=== PATIENT | male | born 1980 | race Caucasian/White ===

== ENCOUNTER 2017-11-02 10:08 | Emergency (ER) | payer MEDICAID ==
[2017-11-02] MEDS ORDERED: KETOROLAC 30 MG/ML 1 ML VIAL IM STA (10:49)
[2017-11-02] MEDS ORDERED: ORPHENADRINE 30 MG/ML 2 ML VIAL IM STA (10:50)
[2017-11-02] MEDS ORDERED: HYDROcodone/APAP 5-325MG 1 EACH TAB PO STA (10:53)
--- NOTE | 2017-11-02 11:27 | ED ---
General Adult HPI - General Chief complaint: Back Pain/Injury Stated complaint: back pain Time Seen by Provider: 11/02/17 10:40 Source: patient, RN notes reviewed Mode of arrival: ambulatory Limitations: no limitations - History of Present Illness Initial comments: 37-year-old male presents to the emergency department for a chief complaint of low back pain 3 hours. Patient states the pain started when he and down to pet the dog and the crate and stood up and felt a sharp pain in his lower back. Patient admits to pain radiating down his right leg. Patient denies bladder or bowel changes. Patient denies any saddle anesthesia. Patient denies a history of back pain. Patient states he feels better when standing rather than sitting. Patient has no other complaints at this time including shortness of breath, chest pain, abdominal pain, nausea or vomiting, headache, or visual changes. - Related Data Home Medications Medication Instructions Recorded Confirmed FLUoxetine HCL [PROzac] 10 mg PO DAILY 11/02/17 11/02/17 Lisinopril [Zestril] 5 mg PO DAILY 11/02/17 11/02/17 levETIRAcetam [Keppra] 1,000 mg PO Q12HR 11/02/17 11/02/17 Previous Rx's Medication Instructions Recorded Cyclobenzaprine [Flexeril] 5 mg PO TID #20 tablet 11/02/17 HYDROcodone/APAP 5-325MG [[place] 1 tab PO Q6HR PRN #10 tab 11/02/17 5-325] Allergies Allergy/AdvReac Type Severity Reaction Status Date / Time No Known Allergies Allergy Verified 11/02/17 10:52 Review of Systems ROS Statement: Those systems with pertinent positive or pertinent negative responses have been documented in the HPI. ROS Other: All systems not noted in ROS Statement are negative. 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 Absent: scleral icterus, conjunctival injection ENT exam: Present: normal exam, mucous membranes moist Neck exam: Present: normal inspection, full ROM. Absent: tenderness, meningismus, lymphadenopathy Respiratory exam: Present: normal lung sounds bilaterally. Absent: respiratory distress, wheezes, rales, rhonchi, stridor Cardiovascular Exam: Present: regular rate, normal rhythm, normal heart sounds. Absent: systolic murmur, diastolic murmur, rubs, gallop, clicks Back exam: Present: normal inspection. Absent: full ROM (flexion to 45 degrees , full extension, full rotation without pain), tenderness (no cervical thoracic or lumbar spine tenderness) Neurological exam: Present: alert, oriented X3, CN II-XII intact Psychiatric exam: Present: normal affect, normal mood Skin exam: Present: warm, dry, intact, normal color. Absent: rash Course Vital Signs 11/02/17 10:34 Temperature 98.2 F Pulse Rate 53 L Respiratory 17 Rate Blood Pressure 149/89 O2 Sat by Pulse 99 Oximetry Medical Decision Making - Medical Decision Making 37-year-old male presents to the emergency department for a chief complaint of low back pain 3 hours. Pain started when he bent down and stood back up. Pain radiating down right leg somewhat. Patient has one kidney. Patient denies bladder or bowel changes or saddle anesthesia. Patient has some limited range of motion with flexion, otherwise ROM intact. No tenderness whatsoever to the lumbar spine. X-ray shows facet arthropathy lower lumbar spine with degenerative disc disease thoracolumbar junction. Patient was given [place] and Norflex in the emergency department and he is feeling considerably better. Patient is recommended to follow up with orthopedics. He is to take Motrin or Tylenol for pain. Discussed with patient that a short few day course of Motrin should be fine with his kidney but to ask primary care. He has never been told not to take Motrin before. He will be given a few [place] for breakthrough pain. He will also take Flexeril. Disposition Clinical Impression: Low back pain Disposition: HOME SELF-CARE Condition: Good Instructions: Acute Low Back Pain (ED) Additional Instructions: Please take Motrin or Tylenol for pain. Please take Flexeril as a muscle relaxer but do not drive or operate machinery while taking this. Follow-up with orthopedics in one to 2 days. Return to the emergency department if you have any worsening symptoms or bladder or bowel changes. Prescriptions: Cyclobenzaprine [Flexeril] 5 mg PO TID #20 tablet HYDROcodone/APAP 5-325MG [[place] 5-325] 1 tab PO Q6HR PRN #10 tab PRN Reason: Pain Is patient prescribed a controlled substance at d/c from ED?: Yes When asked, does pt state using other controlled substances?: No If prescribed controlled substance>3 days was MAPS reviewed?: Prescribed <3 Days If opioid is for acute pain is fill amount 7 days or less?: Yes If Rx opioid, was Start Talking consent form obtained?: Yes Referrals: Catracho Marin MD [Primary Care Provider] - 1-2 days Rico Causey MD [Medical Doctor] - 1-2 days Time of Disposition: 11:49
--- NOTE | 2017-11-02 11:27 | XR ---
EXAM TYPE: LUMBAR SPINE X RAY SERIES COMPARISON: NONE HISTORY: Lower back pain TECHNIQUE: 3 views are submitted. FINDINGS: Alignment is anatomic. The pedicles are intact. The transverse processes are intact. There is no s pondylolysis or spondylolisthesis. Facet arthropathy L4-5 and L5-S1. Degenerative disc disease thora columbar spine. IMPRESSION: 1. Facet arthropathy lower lumbar spine with degenerative disc disease thoracolumbar junction correla te with MRI..
[2017-11-02 12:02] VITALS: BP 148/93; PULSE 56; RESP 18; TEMP 98.1
== END 2017-11-02 12:02 | disposition home or self-care (01) ==
LOC: EC 10:08
DX: M54.5 Low back pain (principal); M46.96 Unspecified inflammatory spondylopathy, lumbar region; M51.35 Other intervertebral disc degeneration, thoracolumbar region; I10 Essential (primary) hypertension; Z85.47 Personal history of malignant neoplasm of testis; Z79.899 Other long term (current) drug therapy
CPT/HCPCS: 72100; 99283; 96372; J2360